=== PATIENT | male | born 1985 | race Caucasian/White ===

== ENCOUNTER 2019-02-23 22:09 | Emergency (ER) | payer SELFPAY ==
[~2019-02-23] VITALS: Ht 162.6 cm; Wt 61.2 kg
[2019-02-23 22:24] VITALS: BP 119/80
[2019-02-23] MEDS ORDERED: TDAP [DIPH/PERTUSSIS/TET] 0.5 ML VIAL IM ONE ×2 (22:57→23:00)
[2019-02-23] MEDS ORDERED: LIDOCAINE HCL/MPF 1% 30 ML VIAL IJ ONE (23:14)
== END 2019-02-24 04:20 | disposition home or self-care (01) ==
LOC: ER 22:15
DX: S61.411A Laceration without foreign body of right hand, initial encounter (principal); Z98.890 Other specified postprocedural states; W26.8XXA Contact with other sharp object(s), not elsewhere classified, initial encounter; Y93.89 Activity, other specified; Y92.89 Other specified places as the place of occurrence of the external cause; Y99.8 Other external cause status
CPT/HCPCS: 12001; 73130; 90471; 90715; 99283; A6402; J3490